=== PATIENT | male | born 1950 | race African-American/Black ===

== ENCOUNTER 2021-06-06 19:16 | Inpatient (IN) | payer OTHER, MEDICAID ==
[~2021-06-06] VITALS: Ht 177.8 cm; Wt 63.5 kg
[~2021-06-06 19:16] MED LIST: ASPI-1497 PO; BACL-141 PO; HYDR25TA PO; PRO AIR INH; SIMV-43 PO; TRAM50TA PO
[2021-06-06] MEDS ORDERED: METHYLPREDNISOLONE SOD SUCC 125 MG/2 ML VIAL IV STA (19:44)
[2021-06-06] MEDS ORDERED: ALBUTEROL (0.083%) 2.5MG/3ML NEB HHN STA (19:44)
[2021-06-06 20:40] LABS: HEMATOCRIT. 29.5 % (42.0-52.0); HEMOGLOBIN. 9.8 g/dL (14.0-18.0); MEAN CORPUSCULAR HEMOGLOBIN 29.5 pg (28.0-32.0); MEAN CORPUSCULAR VOLUME 88.9 fL (80.0-94.0); MEAN PLATELET VOLUME 7.6 fl (7.4-10.4); PLATELET 229 x1000/uL (130-400); RED BLOOD CELL COUNT 3.31 mill/uL (4.7-6.1); RED CELL DISTRIBUTION WIDTH 16.6 % (11.6-14.6)
[2021-06-06 20:44] LABS: CHLORIDE 108 mEq/L (98-107)
[2021-06-06] MEDS ORDERED: VANCOMYCIN 1G PREMIX 200 ML IV NR (20:45)
[2021-06-06] MEDS ORDERED: PIPERACILLIN/TAZ 3.375G PREMIX 50 ML IV ONE (20:45)
[2021-06-06] MEDS ORDERED: VANCOMYCIN 1GM PMX (XELLIA) 200 ML IV NR (20:59)
[2021-06-06 21:09] LABS: PLATELET ESTIMATE NORMAL
[2021-06-06] MEDS ORDERED: FUROSEMIDE 40MG/4ML VIAL IVP ONE (22:30)
[2021-06-06] MEDS ORDERED: ACETAMINOPHEN 325MG TABLET PO PRN ×2 (23:30)
[2021-06-06] MEDS ORDERED: ONDANSETRON HCL 4MG/2ML INJ IV PRN (23:30)
[2021-06-06] MEDS ORDERED: DOCUSATE SODIUM 100MG CAPSULE PO PRN (23:30)
[2021-06-06] MEDS ORDERED: MAGNESIUM/ALUMINUM HYDROXIDE/SIMETHICONE 30ML UDC PO PRN (23:30)
[2021-06-06] MEDS ORDERED: POTASSIUM CHLORIDE 20MEQ TABLET SR PO NR (23:30)
[2021-06-07 00:07] LABS: CHLORIDE 107 mEq/L (98-107)
[2021-06-07] MEDS: CLONIDINE 0.1MG TABLET PO PRN ×3 (00:58→23:47)
[2021-06-07] MEDS ORDERED: CEFTRIAXONE 1 G PREMIX 50 ML IV SCH (01:00)
[2021-06-07] MEDS ORDERED: AZITHROMYCIN 500 MG in DEXT 5% WATER 250 ML IV SCH ×2 (02:00→23:00)
[2021-06-07] MEDS: IPRATROPIUM/ALBUTEROL 0.5-3(2.5)MG/3ML NEB HHN PRN ×2 (06:50→18:17)
[2021-06-07] MEDS: BUDESONIDE 0.5MG/2ML NEB HHN SCH (08:47)
[2021-06-07 09:55] VITALS: BP 157/98
[2021-06-07 11:32] VITALS: BP 140/77
[2021-06-07] MEDS ORDERED: ENZA40TA PO (11:42)
[2021-06-07 13:11] LABS: CREATINE KINASE MB FRACTION 5.5 ng/mL (0.5-3.6)
[2021-06-07] MEDS: METHYLPREDNISOLONE SOD SUCC 40 MG/ML VIAL IV SCH ×3 (13:44→21:06)
[2021-06-07] MEDS: ENOXAPARIN 40MG/0.4ML SYR SUBCUT SCH (13:44)
[2021-06-07] MEDS: ASPIRIN 81MG EC TABLET PO SCH (13:45)
[2021-06-07] MEDS: FUROSEMIDE 40MG/4ML VIAL IVP SCH (13:45)
[2021-06-07] MEDS: NITROGLYCERIN OINT 1GM/INCH UDPKT TD SCH ×2 (13:46→21:08)
[2021-06-07 15:45] LABS: BASOPHILS % 0.3 % (0.0-2.0); EOSINOPHILS % 0.2 % (0.0-5.0); HEMOGLOBIN. 10.6 g/dL (14.0-18.0); LYMPHOCYTES % 21.6 % (20.0-50.0); MEAN CORPUSCULAR HEMOGLOBIN 29.5 pg (28.0-32.0); MEAN CORPUSCULAR VOLUME 89.3 fL (80.0-94.0); MONOCYTES % 12.2 % (2.0-8.0); NEUTROPHILS % 65.7 % (40.0-76.0); PLATELET 236 x1000/uL (130-400); RED BLOOD CELL COUNT 3.58 mill/uL (4.7-6.1); RED CELL DISTRIBUTION WIDTH 16.8 % (11.6-14.6)
[2021-06-07 16:07] LABS: CREATINE KINASE 270 IU/L (39-308)
[2021-06-07 16:08] LABS: CREATINE KINASE MB FRACTION 7.1 ng/mL (0.5-3.6)
[2021-06-07 17:00] VITALS: BP 184/113
[2021-06-07] MEDS: GUAIFENESIN 200MG/10ML SUGAR FREE UDC PO PRN (17:26)
[2021-06-07 18:45] VITALS: BP 160/90
[2021-06-07 20:00] VITALS: BP 144/99
[2021-06-07] MEDS ORDERED: FAMOTIDINE 20MG/2ML VIAL IV SCH (21:00)
[2021-06-07] MEDS: ATORVASTATIN CALCIUM 20MG TABLET PO SCH (21:07)
[2021-06-07] MEDS: AMLODIPINE 5MG TABLET PO SCH (21:07)
[2021-06-07] MEDS: MORPHINE SULFATE 2 MG/ML CPJ (NOT FOR IM USE) IV PRN (21:08)
[2021-06-07 22:18] LABS: *AMPHETAMINES SCREEN URINE NEGATIVE (NEGATIVE); *BARBITURATES SCREEN URINE NEGATIVE (NEGATIVE); *BENZODIAZEPINES SCREEN URINE NEGATIVE (NEGATIVE); *COCAINE SCREEN URINE NEGATIVE (NEGATIVE); METHADONE URINE SCREEN NEGATIVE (NEGATIVE); OPIATES URINE SCREEN NEGATIVE (NEGATIVE)
[2021-06-07 22:19] LABS: CANNABINOID URINE SCREEN NEGATIVE (NEGATIVE); PHENCYCLIDINE URINE SCREEN NEGATIVE (NEGATIVE)
[2021-06-07] MEDS: CEFTRIAXONE 1,000 MG in DEXTROSE 5% WATER 50 ML IV SCH (22:40)
[2021-06-07 23:44] VITALS: BP 165/98
[2021-06-08] MEDS: HYDROCODONE/ACETAMINOPHEN 5/325MG TABLET PO PRN ×4 (00:17→22:45)
[2021-06-08 04:00] VITALS: BP 141/72
[2021-06-08] MEDS: METHYLPREDNISOLONE SOD SUCC 40 MG/ML VIAL IV SCH ×3 (05:42→21:09)
[2021-06-08] MEDS: NITROGLYCERIN OINT 1GM/INCH UDPKT TD SCH ×3 (05:42→21:10)
[2021-06-08 07:11] LABS: BASOPHILS % 0.3 % (0.0-2.0); EOSINOPHILS % 0.2 % (0.0-5.0); HEMOGLOBIN. 9.8 g/dL (14.0-18.0); LYMPHOCYTES % 23.2 % (20.0-50.0); MEAN CORPUSCULAR HEMOGLOBIN 29.1 pg (28.0-32.0); MEAN CORPUSCULAR VOLUME 88.7 fL (80.0-94.0); MEAN PLATELET VOLUME 7.9 fl (7.4-10.4); MONOCYTES % 11.1 % (2.0-8.0); NEUTROPHILS % 65.2 % (40.0-76.0); PLATELET 240 x1000/uL (130-400); RED BLOOD CELL COUNT 3.38 mill/uL (4.7-6.1)
[2021-06-08 07:21] LABS: CHLORIDE 102 mEq/L (98-107)
[2021-06-08 08:00] VITALS: BP 164/96
[2021-06-08] MEDS ORDERED: ALBUTEROL 6.7GM HFA INHALER ORI PRN (08:15)
[2021-06-08] MEDS: BUDESONIDE 0.5MG/2ML NEB HHN SCH (08:19)
[2021-06-08] MEDS ORDERED: NALOXONE HCL 0.4MG/ML VIAL IV PRN (08:45)
[2021-06-08] MEDS ORDERED: ALBUTEROL (0.083%) 2.5MG/3ML NEB HHN PRN (08:45)
[2021-06-08] MEDS: GUAIFENESIN 200MG/10ML SUGAR FREE UDC PO PRN (09:56)
[2021-06-08] MEDS: ASPIRIN 81MG EC TABLET PO SCH (09:57)
[2021-06-08] MEDS: FUROSEMIDE 40MG/4ML VIAL IVP SCH (09:57)
[2021-06-08] MEDS: AMLODIPINE 5MG TABLET PO SCH ×2 (09:57→21:09)
[2021-06-08] MEDS: CLONIDINE 0.1MG TABLET PO PRN (09:58)
[2021-06-08] MEDS: ENOXAPARIN 40MG/0.4ML SYR SUBCUT SCH (09:58)
[2021-06-08 11:00] VITALS: BP 135/80
[2021-06-08 16:00] VITALS: BP 149/86
[2021-06-08 20:03] VITALS: BP 154/96
[2021-06-08] MEDS: IPRATROPIUM/ALBUTEROL 0.5-3(2.5)MG/3ML NEB HHN SCH (21:04)
[2021-06-08] MEDS: ATORVASTATIN CALCIUM 20MG TABLET PO SCH (21:09)
[2021-06-08] MEDS: FAMOTIDINE 20MG TABLET PO SCH (21:09)
[2021-06-08] MEDS: AZITHROMYCIN 500 MG TABLET PO SCH (21:12)
[2021-06-08] MEDS: CEFTRIAXONE 1,000 MG in DEXTROSE 5% WATER 50 ML IV SCH (22:43)
[2021-06-08 23:34] VITALS: BP 160/91
[2021-06-09] MEDS: IPRATROPIUM/ALBUTEROL 0.5-3(2.5)MG/3ML NEB HHN SCH ×5 (00:46→20:34)
[2021-06-09] MEDS: BUDESONIDE 0.5MG/2ML NEB HHN SCH ×2 (00:51→14:31)
[2021-06-09 03:56] VITALS: BP 110/71
[2021-06-09] MEDS: HYDROCODONE/ACETAMINOPHEN 5/325MG TABLET PO PRN ×4 (05:36→21:33)
[2021-06-09] MEDS: METHYLPREDNISOLONE SOD SUCC 40 MG/ML VIAL IV SCH ×3 (05:36→21:34)
[2021-06-09] MEDS: NITROGLYCERIN OINT 1GM/INCH UDPKT TD SCH ×3 (05:36→21:34)
[2021-06-09] MEDS: CLONIDINE 0.1MG TABLET PO PRN ×2 (05:39→21:33)
[2021-06-09 08:00] VITALS: BP 153/97
[2021-06-09] MEDS: ENOXAPARIN 40MG/0.4ML SYR SUBCUT SCH (08:57)
[2021-06-09] MEDS: AMLODIPINE 5MG TABLET PO SCH ×2 (08:58→21:33)
[2021-06-09] MEDS: FUROSEMIDE 40MG/4ML VIAL IVP SCH (08:58)
[2021-06-09] MEDS: ASPIRIN 81MG EC TABLET PO SCH (08:58)
[2021-06-09 12:00] VITALS: BP 149/92
[2021-06-09 16:00] VITALS: BP 122/80
[2021-06-09] MEDS ORDERED: IOHEXOL-350 100 ML BOTTLE ONE (18:50)
[2021-06-09 20:00] VITALS: BP 169/99
[2021-06-09] MEDS: AZITHROMYCIN 500 MG TABLET PO SCH (21:33)
[2021-06-09] MEDS: FAMOTIDINE 20MG TABLET PO SCH (21:33)
[2021-06-09] MEDS: ATORVASTATIN CALCIUM 20MG TABLET PO SCH (21:33)
[2021-06-09] MEDS: CEFTRIAXONE 1,000 MG in DEXTROSE 5% WATER 50 ML IV SCH (23:38)
[2021-06-10] VITALS (8 sets, daily range): BP systolic 138–188; BP diastolic 90–120
[2021-06-10] MEDS: MORPHINE SULFATE 2 MG/ML CPJ (NOT FOR IM USE) IV PRN (00:24)
[2021-06-10] MEDS: BUDESONIDE 0.5MG/2ML NEB HHN SCH ×3 (00:39→21:05)
[2021-06-10] MEDS: IPRATROPIUM/ALBUTEROL 0.5-3(2.5)MG/3ML NEB HHN SCH ×6 (00:40→21:04)
[2021-06-10] MEDS: CLONIDINE 0.1MG TABLET PO PRN ×2 (05:33→21:09)
[2021-06-10] MEDS: METHYLPREDNISOLONE SOD SUCC 40 MG/ML VIAL IV SCH ×3 (05:33→21:04)
[2021-06-10] MEDS: NITROGLYCERIN OINT 1GM/INCH UDPKT TD SCH ×3 (06:00→21:10)
[2021-06-10 08:10] LABS: CHLORIDE 101 mEq/L (98-107)
[2021-06-10] MEDS ORDERED: HYDRALAZINE 20MG/ML VIAL IV NR (08:30)
[2021-06-10] MEDS: FUROSEMIDE 40MG/4ML VIAL IVP SCH (08:42)
[2021-06-10] MEDS: AMLODIPINE 5MG TABLET PO SCH ×2 (08:46→21:04)
[2021-06-10] MEDS: ASPIRIN 81MG EC TABLET PO SCH (08:46)
[2021-06-10] MEDS: ENOXAPARIN 40MG/0.4ML SYR SUBCUT SCH (08:47)
[2021-06-10] MEDS ORDERED: TRAMADOL 50MG TABLET PO NR (12:45)
[2021-06-10] MEDS ORDERED: VISCOUS LIDOCAINE 2% 15 ML UDC MM PRN (14:45)
[2021-06-10] MEDS ORDERED: MAGNESIUM/ALUMINUM HYDROXIDE/SIMETHICONE 30ML UDC PO PRN (14:45)
[2021-06-10] MEDS: TRAMADOL 50MG TABLET PO PRN (19:02)
[2021-06-10] MEDS: ATORVASTATIN CALCIUM 20MG TABLET PO SCH (21:03)
[2021-06-10] MEDS: AZITHROMYCIN 500 MG TABLET PO SCH (21:03)
[2021-06-10] MEDS: FAMOTIDINE 20MG TABLET PO SCH (21:03)
[2021-06-10] MEDS: CEFTRIAXONE 1,000 MG in DEXTROSE 5% WATER 50 ML IV SCH (23:36)
[2021-06-11] MEDS: IPRATROPIUM/ALBUTEROL 0.5-3(2.5)MG/3ML NEB HHN SCH ×2 (00:46→04:25)
[2021-06-11] MEDS: TRAMADOL 50MG TABLET PO PRN ×3 (01:04→07:31)
[2021-06-11 04:00] VITALS: BP 143/82
[2021-06-11] MEDS: METHYLPREDNISOLONE SOD SUCC 40 MG/ML VIAL IV SCH (05:13)
[2021-06-11] MEDS: NITROGLYCERIN OINT 1GM/INCH UDPKT TD SCH ×2 (05:13→14:00)
[2021-06-11 08:00] VITALS: BP 164/98
[2021-06-11] MEDS: AMLODIPINE 5MG TABLET PO SCH (08:23)
[2021-06-11] MEDS: ASPIRIN 81MG EC TABLET PO SCH (08:23)
[2021-06-11] MEDS: FUROSEMIDE 40MG/4ML VIAL IVP SCH (08:23)
[2021-06-11] MEDS: ENOXAPARIN 40MG/0.4ML SYR SUBCUT SCH (08:23)
[2021-06-11 12:00] VITALS: BP 135/83
[2021-06-11 16:00] VITALS: BP 143/91
[2021-06-11] MEDS ORDERED: ISOSORBIDE MONONITRATE 60MG TABLET SR 24HR PO SCH (16:00)
[2021-06-11] MEDS ORDERED: NEBU-269 MC (16:18)
[2021-06-11] MEDS ORDERED: ALBU05 NEB (16:18)
[2021-06-11] MEDS ORDERED: ISOS60TA76 PO (16:18)
[2021-06-11] MEDS ORDERED: P20 PO (16:18)
[2021-06-11] MEDS ORDERED: AMLO5TAB88 PO (16:18)
[2021-06-11] MEDS ORDERED: FAMO20TA8 PO (16:18)
[2021-06-11] MEDS ORDERED: ALBU6.7H15 INH (16:18)
[2021-06-11 16:30] VITALS: BP 143/91
[2021-06-11] MEDS ORDERED: PREDNISONE 20MG TABLET PO SCH (17:00)
== END 2021-06-11 17:17 | disposition home or self-care (01) | DRG 291 ==
LOC: ER 19:16 → MICUSO 22:21 → EDBEDREQ 22:25 → EDBEDREQTM 22:25 → 6WST 06-07 10:53
PROVIDERS: ADMIT Internal Medicine; ATTEND Internal Medicine
DX: I11.0 Hypertensive heart disease with heart failure (principal); J96.01 Acute respiratory failure with hypoxia; I50.33 Acute on chronic diastolic (congestive) heart failure; C79.51 Secondary malignant neoplasm of bone; J84.9 Interstitial pulmonary disease, unspecified; J98.11 Atelectasis; F17.200 Nicotine dependence, unspecified, uncomplicated; D64.9 Anemia, unspecified; E87.6 Hypokalemia; C61 Malignant neoplasm of prostate; E78.5 Hyperlipidemia, unspecified; F10.10 Alcohol abuse, uncomplicated; F17.210 Nicotine dependence, cigarettes, uncomplicated; I27.20 Pulmonary hypertension, unspecified; I49.1 Atrial premature depolarization; J43.9 Emphysema, unspecified; Z85.46 Personal history of malignant neoplasm of prostate; Z79.82 Long term (current) use of aspirin; Z71.6 Tobacco abuse counseling; Z79.899 Other long term (current) drug therapy
CPT/HCPCS: 36415; 71045; 71275; 78582; 80048; 80053; 80061; 80305; 82550; 82553; 83036; 83605; 83735; 83880; 84443; 84484; 85025; 85379; 87070; 87106; 87426; 93005; 93306; 93970; 94640; 99291; A9558; J0360; J0456; J0696; J1650; J1940; J2270; J2543; J2920; J2930; J3370; J3490; J7060; J7512; J7626; Q9967